=== PATIENT | male | born 2000 | race Caucasian/White ===

== ENCOUNTER 2021-07-09 07:11 | Emergency (ER) | payer OTHER ==
[~2021-07-09] VITALS: Ht 175.3 cm; Wt 104.6 kg
--- NOTE | 2021-07-09 08:50 | REP ---
INDICATION: L testicular pain. COMPARISON: None. TECHNIQUE: Real-time sonographic evaluation of scrotum and contents performed. FINDINGS: The testicles are normal in size and echotexture, right testicle measuring 4.1 x 2.5 x 3.1 cm and left testicle 4.1 x 2.4 x 2.9 cm. There is no testicular mass or torsion. Blood flow is seen in each testicle with duplex Doppler evaluation. There are 2 cysts in the head of the left epididymis measuring 5 mm and 10 mm in diameter. Minimal hydroceles are seen bilaterally. IMPRESSION: No testicular mass or torsion. There are 2 cysts in the head of the left epididymis. Bilateral minimal hydroceles. <Electronically signed by Yordy Hernandez > 07/09/21 [id number]
[2021-07-09 10:22] LABS: GC DNA AMPLIFICATION NEGATIVE (NEGATIVE)
[2021-07-09 11:08] VITALS: BP 144/79
== END 2021-07-09 11:09 | disposition home or self-care (01) ==
LOC: M ED 07:11
DX: N43.3 Hydrocele, unspecified (principal); N50.3 Cyst of epididymis